=== PATIENT | female | born 1995 | race African-American/Black ===

== ENCOUNTER 2016-09-18 06:27 | Emergency (ER) | payer MEDICAID ==
[~2016-09-18] VITALS: Ht 167.6 cm; Wt 80.0 kg
[~2016-09-18 06:27] MED LIST: DIFL500T PO; Z.0.NO CURRENT MEDS; ZOFR4TAB3 SL
[2016-09-18 06:30] VITALS: BP 130/78; PULSE 80; RESP 18; TEMP 98; O2SAT 99
[2016-09-18] MEDS ORDERED: ZOFR4TAB3 SL (07:41)
--- NOTE | 2016-09-18 07:42 | PD ---
HPI Chief Complaint: Abdominal Pain Time Seen by Provider: 07:45 Travel History International Travel<30 days: No Contact w/Intl Traveler<30days: No Traveled to known affect area: No History of Present Illness HPI Patient's 21-year-old female presents emergency Department with nausea vomiting and diarrhea with absence of abdominal pain. Patient's accompanied by her 1- year-old daughter who is had very similar symptoms. According to mom daughter "had at first and passed it onto [mom]. Patient denies any vaginal bleeding vaginal discharge blood in the stool or blood in the emesis. Patient states her symptoms are fairly mild and signed in only because she is having her daughter seen as well. No other sick contacts at work or home. Denies any fevers. No abdominal surgeries in the past. Symptoms for 2 days and stable.. PFSH Past Medical History ADHD: Yes Cancer: No Developmental Delay: No Diabetes: No Diminished Hearing: No Headaches: No Psychiatric: Yes (SUBSTANCE ABUSE) Immunizations Current: Yes Migraines: No Seizures: No Thyroid Disease: No Ulcer: No PNEUMOCCOCAL Vaccine (Year): 1 ?: Unknown LMP: 07/21/16 : 2 Para: 1 : 1 Ovarian Cysts: Yes Past Surgical History Appendectomy: No Cholecystectomy: No Social History Alcohol Use: No Tobacco Use: Yes (/2 PPD) Substance Use: Yes (MARIJUANA DAILY) Allergies-Medications (Allergen,Severity, Reaction): Coded Allergies: Ibuprofen (Verified Allergy, Intermediate, Rash, 09/18/16) Reported Meds & Prescriptions Reported Meds & Active Scripts Active Zofran Odt (Ondansetron Odt) 4 Mg Tab 4 Mg SL Q6HR PRN Review of Systems Except as stated in HPI: all other systems reviewed are Neg Physical Exam Narrative GENERAL: Well-developed well-nourished no apparent distress SKIN: Warm and dry. HEAD: Atraumatic. Normocephalic. EYES: Pupils equal and round. No scleral icterus. No injection or drainage. ENT: No nasal bleeding or discharge. Mucous membranes pink and moist. NECK: Trachea midline. No JVD. CARDIOVASCULAR: Regular rate and rhythm. No murmur appreciated. RESPIRATORY: No accessory muscle use. Clear to auscultation. Breath sounds equal bilaterally. GASTROINTESTINAL: Abdomen soft, non-tender, nondistended. Hepatic and splenic margins not palpable. No CVA tenderness, no peritoneal tenderness, no percussive tenderness. MUSCULOSKELETAL: No obvious deformities. No clubbing. No cyanosis. No edema. NEUROLOGICAL: Awake and alert. No obvious cranial nerve deficits. Motor grossly within normal limits. Normal speech. PSYCHIATRIC: Appropriate mood and affect; insight and judgment normal. Data Data Last Documented VS Vital Signs Date Time Temp Pulse Resp B/P Pulse Ox O2 Delivery O2 Flow Rate FiO2 09/18/16 06:30 98.0 80 18 130/78 99 Room Air [facility] Medical Decision Making Medical Screen Exam Complete: Yes Emergency Medical Condition: Yes Differential Diagnosis Gastroenteritis, nausea vomiting, diarrhea, infectious diarrhea, acute abdomen excluded clinically. Narrative Course Patient roomed in the emergency department, both her and her daughter who is also patient of mine appear well and in no apparent distress. Recommend it symptomatically management for now with Tylenol and ibuprofen for fever as well as Zofran for nausea. Discussed return to ED criteria and follow-up with primary care physician. Diagnosis Primary Impression: Nausea & vomiting Qualified Code: R11.2 - Non-intractable vomiting with nausea, unspecified vomiting type Med/Other Pt SpecificInfo: Prescription(s) given Scripts Ondansetron Odt (Zofran Odt)4 Mg Tab4 Mg SL Q6HR PRN (Nausea/Vomiting) #30 TAB Ref 0 Prov:Jose Betts MD 09/18/16 Disposition: 01 DISCHARGE HOME Condition: Stable Jose Betts MD Sep 18, 2016 07:42
== END 2016-09-18 08:03 | disposition home or self-care (01) ==
LOC: NEPE 06:27
DX: R11.2 Nausea with vomiting, unspecified (principal); F17.210 Nicotine dependence, cigarettes, uncomplicated; F12.90 Cannabis use, unspecified, uncomplicated
CPT/HCPCS: 99283